=== PATIENT | male | born 1945 | race Caucasian/White ===

== ENCOUNTER 2016-07-31 14:00 | Emergency (ER) | payer OTHER ==
[2016-07-31 14:24] VITALS: TEMP 98.8
[2016-07-31] MEDS ORDERED: ONDANSETRON 4 MG/2 ML VIAL ONE (14:35)
--- NOTE | 2016-07-31 14:36 | EDPHY ---
H & P Stated Complaint: LEFT FLANK PAIN STARTED LAST NIGHT, HX KIDNEY STONES HPI/ROS: CHIEF COMPLAINT: Left abdominal pain. HISTORY OF PRESENT ILLNESS: The patient is a 70-year-old male with a history of ureterolithiasis, insulin-dependent diabetes, and hypertension, presenting with left sided upper abdominal pain that started around 2:30 AM.. He thinks that this could be a kidney stone but is also worried about the possibility of constipation. He had a small bowel movement yesterday and normal stool the day before. He tried a suppository yesterday after the pain developed. After going for a walk today he was able to have a loose bowel movement around 12pm. He continued to have left sided abdominal pain after having the bowel movement. He states this pain is similar to previous kidney stones. He has associated nausea and had 1 episode of emesis while in the ED secondary to pain. He denies fever. No hematuria or dysuria though he does mention decreased urination. The patient has not had a kidney stone for over a decade. In the past lithotripsy was required, other times he has passed the stone without intervention. REVIEW OF SYSTEMS: A ten point review of systems was performed and is negative with the exception of the items mentioned in the HPI. Source: Patient Exam Limitations: No limitations - Medical/Surgical History Hx Diabetes: Yes Other PMH: DIABETES, HTN, NECK/BACK CHRONIC PAIN, HYPOTHYROIDISM, KIDNEY STONE, GALL BLADDER - Social History Additional Social History: He is . No tobacco use. Rare alcohol use. [facility] - Physical Exam Exam: General Appearance: Alert. Vital signs reviewed. Blood pressure 180/126 in triage, repeat blood pressure 170/103. Eyes: Pupils equal and round, no conjunctival injection, no discharge. Anicteric. ENT, Mouth: Mucous membranes are moist, no oropharyngeal erythema or edema. Neck: No lymphadenopathy, supple. Respiratory: Lungs are clear to auscultation; no wheezes, rales, or rhonchi. Cardiovascular: Regular rate and rhythm; no murmur, rub, or gallop. Gastrointestinal: Abdomen is soft with high left lateral abdomen tenderness. No guarding or rebound. No masses. Normal bowel sounds. Skin: Peeling skin over the left arm from the mid upper arm to the wrist. Skin is warm and dry. Normal color. Back: Nontender to palpation over the thoracolumbar spine. No CVAT. Extremities: No lower extremity edema, no calf tenderness or swelling. Neurological: Alert and oriented. Moving all four extremities easily and equally. Psychiatric: Normal affect. Constitutional: Initial Vital Signs Temperature (C) 37.1 C 07/31/16 14:10 Heart Rate 91 07/31/16 14:10 Respiratory Rate 18 07/31/16 14:10 Blood Pressure 180/126 H 07/31/16 14:10 O2 Sat (%) 95 07/31/16 14:10 O2 Delivery Mode Room Air O2 (L/minute) 2 Allergies/Adverse Reactions: No Known Allergies Allergy (Verified 07/31/16 14:20) Home Medications: Medication Instructions Recorded Insulin Aspart [Novolog] 100 unit SQ 04/25/12 Citalopram 07/31/16 Gabapentin 07/31/16 Hydrocodone/APAP 5/325 [[place] 1 - 2 tab PO Q4 PRN #20 tab 07/31/16 5/325 (RX)] Levothyroxine 07/31/16 Metformin HCl 07/31/16 Metoprolol Succinate 07/31/16 Tamsulosin HCl [Flomax] 0.4 mg PO DAILY #7 cap 07/31/16 traMADol 07/31/16 Medical Decision Making ED Course/Re-evaluation: The patient is a 70-year-old male with history of diabetes, hypertension, and kidney stones presents with left upper abdominal pain. The patient states this pain feels similar to previous kidney stones. He notes recent difficulty moving his bowels, but states he was able to have a loose bowel movement today at 12pm. The patient was able to urinate today as well, no visible hematuria. Patient appears uncomfortable. On examination he has left upper abdominal tenderness. IV was established, patient received 4mg Morphine, 4mg Zofran, and 1L normal saline. Patient has not had a kidney stone for many years. Urinalysis positive for blood, few white blood cells, 1+ bacteria, 1+ glucose. I suspect ureterolithiasis. Plan to check CT abdomen/pelvis. 3:00 p.m.: The patient is still complaining of pain. His creatinine is normal. He will be given Toradol 15 mg IV. His care will be transferred to Dr. Vinicius Rahman. CT scan reported to me by Dr. Dontae Colon. Shows a 4 mm distal left ureteral calculus with hydronephrosis. There are multiple bilateral renal stones. Flomax is being given. His care will be transferred to Dr. Vinicius Rahman at 3:15 p.m.. I anticipate DC from ED once pain control is achieved. I am hopeful that he will be able to pass this kidney stone. He is being referred to a urologist but may prefer to follow up with the urologist at the [facility]. Patient is aware that his blood pressure is high in ED today. He states that his BP is normally well controlled and attributes today's elevation to pain. If it remains high he will FU with PCP. Differential Diagnosis: I considered a differential diagnosis including but not limited to musculoskeletal causes, kidney stone, pyelonephritis, shingles, and intra- abdominal causes such as constipation, diverticulitis and appendicitis. - Data Points Laboratory Results: Laboratory Results 07/31/16 14:30 Medications Given: Discontinued Medications Sodium Chloride (Ns) 1,000 mls @ 0 mls/hr IV ONCE ONE PRN Reason: Wide Open Stop: 07/31/16 14:42 Last Admin: 07/31/16 14:40 Dose: 1,000 mls Ketorolac Tromethamine (Toradol) 15 mg IVP EDNOW ONE Stop: 07/31/16 15:30 Last Admin: 07/31/16 15:43 Dose: 15 mg Ketorolac Tromethamine (Toradol) 15 mg IVP EDNOW ONE Stop: 07/31/16 15:32 Last Admin: 07/31/16 15:44 Dose: Not Given Morphine Sulfate (Morphine) 4 mg IVP EDNOW ONE Stop: 07/31/16 14:42 Last Admin: 07/31/16 14:38 Dose: 4 mg Morphine Sulfate (Morphine) 4 mg IVP EDNOW ONE Stop: 07/31/16 15:55 Last Admin: 07/31/16 16:04 Dose: 4 mg Ondansetron HCl (Zofran) 4 mg IVP EDNOW ONE Stop: 07/31/16 14:42 Last Admin: 07/31/16 14:37 Dose: 4 mg Ondansetron HCl (Zofran) 4 mg IVP EDNOW ONE Stop: 07/31/16 15:46 Last Admin: 07/31/16 15:45 Dose: 4 mg Tamsulosin HCl (Flomax) 0.4 mg PO EDNOW ONE Stop: 07/31/16 15:32 Last Admin: 07/31/16 16:00 Dose: 0.4 mg Departure - Departure Disposition: Home, Routine, Self-Care Clinical Impression: Renal colic on left side, Ureterolithiasis Condition: Good Instructions: Kidney Stones (ED), Renal Colic (ED), How to Strain Your Urine ( ED) Additional Instructions: I am referring you to a urologist but you can follow up at the [facility] if you prefer. If you have intractable pain, fever, vomiting, any new or concerning symptoms-- please return for re-evaluation. I am prescribing Vicodin for you to use for pain. You can also take ibuprofen 400 mg every 6-8 hours for pain. You can use both of these medications. You should take Flomax once daily. You have received today's dose. Referrals: TAYLER LANZA [Other] - As per Instructions Dee Larry MD [Medical Doctor] - As per Instructions Prescriptions: Hydrocodone/APAP 5/325 [[place] 5/325 (RX)] 1 - 2 tab PO Q4 PRN #20 tab PRN Reason: pain Tamsulosin HCl [Flomax] 0.4 mg PO DAILY #7 cap Report Scribed for: Taty Arroyo Report Scribed by: Lisa Rodríguez Date of Report: 07/31/16 Time of Report: 15:08 Physician Review and Approval Statement: 07/31/16 14:35 Portions of this note were transcribed by the bacteriologist medical. I, Dr. Taty Arroyo, personally performed the history, physical exam, and medical decision- making; and confirmed the accuracy of the information in the transcribed note.
[2016-07-31] MEDS ORDERED: NS 1,000 ML IV ONE (14:41)
[2016-07-31] MEDS ORDERED: ONDANSETRON 4 MG/2 ML VIAL IVP ONE ×2 (14:41→15:45)
[2016-07-31 14:44] LABS: COLOR YELLOW; LEUKOCYTE ESTERASE,URINE NEGATIVE (NEGATIVE); NITRITE,URINE NEGATIVE (NEGATIVE)
[2016-07-31 15:00] LABS: BACTERIA 1+ /hpf (NONE SEEN); MUCUS 1+ /lpf (NONE-1+); RBC,URINE 25-50 /hpf (0-3)
[2016-07-31 15:03] LABS: ANION GAP 17 mEq/L (8-16); CALCIUM 9.7 mg/dL (8.5-10.4); CARBON DIOXIDE 25 mEq/l (22-31); CHLORIDE 99 mEq/L (97-110); GLOMERULAR FILTRATION RATE > 60; GLUCOSE 189 mg/dL (70-100); POTASSIUM 4.4 mEq/L (3.5-5.2); SODIUM 141 mEq/L (134-144)
[2016-07-31] MEDS ORDERED: KETOROLAC 30 MG/1 ML SDV IVP ONE (15:29)
[2016-07-31] MEDS ORDERED: TAMSULOSIN HCL 0.4 MG CAP PO ONE (15:31)
[2016-07-31] MEDS ORDERED: KETOROLAC 15 MG/1 ML SDV IVP ONE (15:31)
[2016-07-31 16:06] VITALS: BP 160/105; PULSE 89; RESP 16; O2SAT 96
== END 2016-07-31 16:52 | disposition home or self-care (01) ==
LOC: CED 14:00
DX: N20.1 Calculus of ureter (principal); E11.9 Type 2 diabetes mellitus without complications; I10 Essential (primary) hypertension; Z79.4 Long term (current) use of insulin; Z79.84 Long term (current) use of oral hypoglycemic drugs
CPT/HCPCS: 74176; 96361; 96374; 96375; 96376; 99285; J1885; J2405; 80048-PO; 81003-PO; 81015-PO

== ENCOUNTER 2017-07-29 06:05 | Emergency (ER) | payer OTHER ==
--- NOTE | 2017-07-29 07:00 | EDPHY ---
H & P Time Seen by Provider: 07/29/17 06:23 HPI/ROS: CC: insomnia HPI: This 71-year-old male with a past medical history including anxiety, depression, diabetes, sleep apnea, hypertension presents to the emergency department today complaining of anxiety and difficulty sleeping. He has had these problems for quite some time intermittently (similar symptoms in our system dating back at least to 2009). He was seen at the [facility] yesterday for a UTI and placed on Cephalexin. He was given Hydroxyzine for allergies/sleep. He takes Tramadol for back pain and has taken it for at least four years. He ran out of Citalopram and they have refilled it, however it will be mailed to him. He also uses an insulin pen but hasn't been diligent about his blood sugar monitoring because of his insomnia. [facility] blood and urine tests. He denies dizziness today but felt a little lightheaded yesterday. He denies chest pain, shortness of breath, fever, chills, abdominal pain, diarrhea. REVIEW OF SYSTEMS: Constitutional: No fever, no chills. Eyes: No discharge. ENT: No sore throat. Respiratory: No cough, no shortness of breath. Cardiac: No chest pain, no palpitations. Gastrointestinal: No abdominal pain, no vomiting. Genitourinary: No hematuria. Musculoskeletal: No back pain. Skin: No rashes. Neurological: No headache, numbness, tingling, or weakness. Past Medical/Surgical History: PMH: anxiety, depression, diabetes, HTN, DEMETRIO, thyroid cancer PSH: pectoral muscle surgery, cholecystectomy, prostate surgery ("laser") NKDA Meds: Cephalexin, hydroxyzine, levothyroxine, tramadol, citalopram (awaiting refill) and insulin pen Social History: Denies tobacco products, ETOH, marijuana. ; one son. 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 Smoking Status: Never smoked Physical Exam: General Appearance: Alert, anxious. Eyes: Pupils equal and round no pallor or injection. ENT, Mouth: Mucous membranes are moist. Respiratory: There are no retractions, lungs are clear to auscultation. Cardiovascular: Regular rate and rhythm. Borderline tachycardia. Occasional ectopic beat. Gastrointestinal: Abdomen is obese, soft and nontender, no pulsatile, masses, bowel sounds normal. Neurological: Awake and alert, sensory and motor exams grossly normal. Gait steady. Skin: Warm and dry, no rashes. Musculoskeletal: Neck is supple nontender. Extremities are symmetrical, full range of motion. Minimal ankle edema. Psychiatric: Patient is oriented X 3, cooperative. DIFFERENTIAL DIAGNOSIS: After history and physical exam differential diagnosis was considered for but not limited to: anxiety, insomnia, DEMETRIO, hypoglycemia, hyperglycemia, DKA, UTI, electrolyte abnormality, sepsis Constitutional: Initial Vital Signs Temperature (C) 98.1 F 07/29/17 06:14 Heart Rate 106 H 07/29/17 06:14 Respiratory Rate 18 07/29/17 06:14 Blood Pressure 160/100 H 07/29/17 06:14 O2 Sat (%) 92 07/29/17 06:14 O2 Delivery Mode Room Air Allergies/Adverse Reactions: No Known Allergies Allergy (Verified 07/29/17 06:28) Home Medications: Medication Instructions Recorded Citalopram 07/31/16 Levothyroxine 07/31/16 traMADol 07/31/16 Cephalexin 07/29/17 Hydroxyzine HCl 07/29/17 LORazepam [Ativan (*)] 1 mg PO HS PRN 15 Days #10 tab 07/29/17 Medical Decision Making ED Course/Re-evaluation: The patient was seen and examined. Vital signs reviewed and significant for a borderline tachycardia and hypertension. A environmental monitoring technician was placed and the patient showed a heart rate in the low 100s with an occasional PAC. Prior records from our system reviewed. [facility] were obtained. His chief complaint yesterday was burning with urination for 2 weeks , crusty eyes, intermittent pedal edema, dizziness on and off for months. His computerized problem list was significant for type 2 diabetes mellitus, thyroid cancer, hypothyroid, osteoarthritis, depression, knee pain, secondary malignant neoplasm of lymph node, gastroesophageal reflux disease, service cell just, actinic keratosis, diabetic retinopathy, malignant melanoma of skin of upper limb, hypertension, diarrhea, hearing loss, sciatica, urinary retention due to benign prostatic hypertrophy. His medication list included cholestyramine, citalopram, insulin (Detemir 100 units/ml flex touch), lancets, levothyroxine, omeprazole, glucose test strips, ranitidine, tramadol, and Vanicream. Vital signs were blood pressure 184/92 mmHg, pulse 109, respiratory rate 17, pulse ox 90% on room air, temp 96.9 F. his physical exam was significant for irregular cardiac rhythm. And 1+ pedal edema. Lungs were clear to auscultation. The chest x-ray was read as focal area of slightly asymmetric interstitial opacity in the left upper lobe near the apex superimposed on the left posterior 4th rib. This may represent superimposed bronchovascular structures or interstitial infiltrate. Pulmonary vascularity is otherwise within normal limits without evidence of pulmonary edema. Labs showed an INR of 1, glucose 245, sodium 139, potassium 4.1, chloride 105, CO2 25, calcium 8.4, protein 6.9, albumin 3.9, total bilirubin 0.7, alk-phos 115, SGOT 28, SGPT 38, anion gap 9, BUN 21, creatinine 1.2, estimated glomerular filtration rate 59.5, BNP 141, WBC 9.6, HGB 13.3, HCT 40.1, platelets 209, urine showed moderate blood, trace ketones, glucose 50, protein moderate, pH 5.0, WBCs greater than 50, RBCs greater than 50, nitrite negative, leukocyte esterase moderate, bacteria 2+, squamous epithelial cells 1-4. Postvoid retention was 18mls. His discharge diagnosis was UTI without evidence of urosepsis, pyelonephritis, prescription for Keflex; crusty eyes recommended to wear goggles in the pool, no sign of infection. Pedal edema recommended low-salt diet. He was instructed to follow up with his primary care provider whom he states is Dr. Browne. Patient has declined an EKG or repeat laboratory chest here today. He did agree to an Accu- Chek which showed his blood glucose to be approximately 355 please refer to the nursing notes. The patient's current medications, the results from his visit yesterday, and recommendations to monitor his blood sugar more closely and take medications as directed were discussed at length with the patient all his questions were answered. Was given a prescription for Ativan 1 mg tablets and instructed to take 1/2 to 1 tab at bedtime as needed for insomnia. Between the prescription and a take-home pack he received a total of 14 tablets. He was advised that any further refills should come from his primary care provider. Patient is aware he should not drive while sleepy or taking sedating medications. He will follow up with his primary care provider as previously instructed. He was advised to [facility] for [facility] culture results should his symptoms not improve over the next 2-3 days. He was also advised to return to the emergency room immediately if he had any problems or concerns. - Data Points Medications Given: Discontinued Medications Lorazepam (Ativan 1 Mg Prepack#4) 1 btl BROOKS BOGGSNOW ONE Stop: 07/29/17 07:30 Last Admin: 07/29/17 07:39 Dose: 1 btl Departure - Departure Disposition: Home, Routine, Self-Care Clinical Impression: Insomnia due to anxiety and fear Condition: Good Instructions: Lorazepam (By mouth), Generalized Anxiety Disorder (ED), Insomnia (ED) Additional Instructions: Monitor your blood sugar closely. It is too high. Take your insulin as directed previously for your diabetes. Return to the ER if you cannot get your blood glucose under control or feel poorly. Take the Cephalexin as prescribed yesterday for your urine infection. Call your [facility] provider in 2-3 days if you are still having symptoms. Return to the ER if fever, nausea, vomiting, abdominal pain, confusion or any other concerns. Do not drive if you are sleepy and do not drive while taking the Ativan (also known as lorazepam). Return to the ER at any time if you have any further problems or concerns. Referrals: Unknown,Unknown [Primary Care Provider] - As per Instructions Stand Alone Forms: Work Excuse Prescriptions: LORazepam [Ativan (*)] 1 mg PO HS PRN 15 Days #10 tab PRN Reason: insomnia
[2017-07-29] MEDS ORDERED: LORAZEPAM 1 MG PREPACK#4 BTL TAKEHOME ONE (07:29)
[2017-07-29 07:56] VITALS: BP 160/98
== END 2017-07-29 07:42 | disposition home or self-care (01) ==
LOC: CED 06:05
DX: F51.05 Insomnia due to other mental disorder (principal); E11.9 Type 2 diabetes mellitus without complications; I10 Essential (primary) hypertension; F40.9 Phobic anxiety disorder, unspecified; Z85.850 Personal history of malignant neoplasm of thyroid

== ENCOUNTER 2018-03-07 10:10 | Emergency (ER) | payer OTHER ==
[2018-03-07] MEDS ORDERED: LORazepam 1 MG TAB PO ONE ×2 (10:40→11:07)
--- NOTE | 2018-03-07 10:44 | EDPHY ---
H & P Time Seen by Provider: 03/07/18 10:20 HPI/ROS: HPI Anxiety, panic attack. 72-year-old male by private vehicle. This patient has a history of panic attacks. He reports that 10:30 a.m. He started having a panic attack. He describes this as feeling very restless. He also describes having irritable bowels and diarrhea as well as a sensation of not being able to catch his breath. He reports this is the exact same constellation of symptoms he has had in the past with his panic attacks. No chest pain. He reports he took 2 tramadol tablets earlier this morning about 2 hr prior to arrival with no relief. He reports that he does take this chronically for pain but states that also helps him with his anxiety but it takes a while for it to have affect. He denies any other associated signs or symptoms. ROS: Constitutional: No fever, no chills. As above. Eyes: No discharge. No changes in vision. ENT: No sore throat. No nasal congestion or rhinorrhea. Respiratory: No cough. As above. Cardiac: No chest pain, no palpitations. Gastrointestinal: No abdominal pain, no vomiting, no diarrhea. Genitourinary: No hematuria. No dysuria or increased frequency with urination. Musculoskeletal: No back pain. No neck pain. No myalgias or arthralgias. Skin: No rashes. Neurological: No headache. No focal weakness or altered sensation. Past medical history: Diabetes, hypertension, chronic pain, hypothyroidism, kidney stones, cholecystectomy, depression and anxiety, panic attacks, pectoral surgery. 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 Denies alcohol, tobacco and drugs. . Has a son. Physical Exam: General Appearance: Alert, pleasant, appears well, pacing, mildly anxious.. This patient is responding to questions appropriately and in full sentences. This patient appears well-hydrated and well-nourished. Eyes: Pupils equal and round no pallor or injection. No lid edema, erythema or injection. Respiratory: There are no retractions, lungs are clear to auscultation with good air movement bilaterally. Cardiovascular: Regular rate and rhythm. No murmur. Gastrointestinal: Abdomen is soft and nontender, no masses, bowel sounds normal. No focal tenderness at McBurney's point. No Kasper sign. Neurological: Motor sensory function is grossly intact. Cranial nerves are normal. Gait is normal. Skin: Warm and dry, no rashes. Musculoskeletal: Neck is supple and nontender. Extremities are symmetrical. All joints range without pain or impingement. Psychiatric: No agitation. No depression. Database: EKG: EKG time is 10:54 a.m.; EKG shows a narrow complex sinus tachycardia with a ventricular rate of 111. Probable left atrial enlargement. The MN, QRS, QT intervals are within normal limits. There are no ST-T wave changes indicative of ischemic or injury pattern. No evidence of right heart strain. Interpreted by me. Imaging: Procedures: Emergency department course: Triage vital signs reviewed. He was mildly tachycardic. He is 92-93% on room air. This is consistent with his vital signs from previous visits for panic attacks. Vital signs are otherwise normal. Patient's presentation is consistent with a panic attack. EKG obtained and reviewed by myself. He will be given 1 mg of oral Ativan. 11:05 a.m., patient re-evaluated, he is still pacing in the room and states that he does not feel much different. He will be given an additional 1 mg of oral Ativan. 11:45 a.m., patient re-evaluated, he is now feeling more relaxed and feels comfortable going home. He will be discharged to home with his . He can return in and get his car later in the day. Follow-up and return to emergency department precautions reviewed with him. All of his questions were answered. His tachycardia has resolved. He was discharged from the emergency department in good condition with his . Differential Diagnosis: The differential diagnosis on this patient includes but is not limited to panic attack. Acute coronary syndrome, CHF, pneumonia, pulmonary embolism unlikely. This represents a partial list of diagnoses considered. These considerations are based on history, physical exam, past history, reassessment and diagnostic testing. Smoking Status: Never smoked Constitutional: Initial Vital Signs Temperature (C) 36.6 C 03/07/18 10:25 Heart Rate 102 H 03/07/18 10:25 Respiratory Rate 20 03/07/18 10:25 Blood Pressure 137/85 H 03/07/18 10:25 O2 Sat (%) 91 L 03/07/18 10:25 O2 Delivery Mode Room Air Allergies/Adverse Reactions: No Known Allergies Allergy (Verified 03/07/18 10:25) Home Medications: Medication Instructions Recorded Citalopram 07/31/16 Levothyroxine 07/31/16 traMADol 07/31/16 Hydroxyzine HCl 07/29/17 Insulin NPH Human 03/07/18 Medical Decision Making - Data Points Medications Given: Discontinued Medications Lorazepam (Ativan) 1 mg PO EDNOW ONE Stop: 03/07/18 10:41 Last Admin: 03/07/18 10:44 Dose: 1 mg Lorazepam (Ativan) 1 mg PO EDNOW ONE Stop: 03/07/18 11:08 Last Admin: 03/07/18 11:08 Dose: 1 mg Departure - Departure Disposition: Home, Routine, Self-Care Clinical Impression: Panic attack Condition: Good Instructions: Panic Attack (ED) Additional Instructions: Read and follow provided instructions. Follow-up with your primary care physician in 1-2 days for re-evaluation. Take your medication as prescribed. Return to the emergency department for worsening symptoms, chest pain, worsening shortness of breath or other serious concerns. Referrals: NONE *PRIMARY CARE P,. [Primary Care Provider] - As per Instructions
--- NOTE | 2018-03-07 11:05 | CPEKG ---
Test Reason : OPEN Blood Pressure : / mmHG Vent. Rate : 111 BPM Atrial Rate : 111 BPM P-R Int : 166 ms QRS Dur : 086 ms QT Int : 337 ms P-R-T Axes : 055 036 046 degrees QTc Int : 458 ms Sinus tachycardia Probable left atrial enlargement Confirmed by Vikram Durham ([id number]) on 03/07/2018 11:04:23 AM Referred By: Confirmed By:Vikram Durham
[2018-03-07] MEDS ORDERED: LORazepam 1 MG TAB ONE (11:07)
[2018-03-07 11:56] VITALS: BP 120/78
== END 2018-03-07 11:54 | disposition home or self-care (01) ==
LOC: CED 10:10
DX: F41.0 Panic disorder [episodic paroxysmal anxiety] (principal); F41.8 Other specified anxiety disorders; E11.9 Type 2 diabetes mellitus without complications; G89.29 Other chronic pain; I10 Essential (primary) hypertension; E03.9 Hypothyroidism, unspecified; Z90.49 Acquired absence of other specified parts of digestive tract